=== PATIENT | female | born 1995 | race Native Hawaiian/Other Pacific Islander ===

== ENCOUNTER 2017-02-02 13:39 | Outpatient (CLI) | payer OTHER | END 2017-02-02 13:46 | disposition short-term general hospital (02) | LOC: AMB 13:39 | DX: R06.09 Other forms of dyspnea (principal) | CPT/HCPCS: A0425; A0427 ==

== ENCOUNTER 2017-02-02 13:52 | Emergency (ER) | payer OTHER ==
[~2017-02-02] VITALS: Ht 160 cm; Wt 99.8 kg
== END 2017-02-02 16:00 | disposition home or self-care (01) ==
LOC: ED 13:52
DX: J39.2 Other diseases of pharynx (principal); J02.9 Acute pharyngitis, unspecified; Z13.9 Encounter for screening, unspecified
CPT/HCPCS: 36415; 87081; 87880; 99283

== ENCOUNTER 2017-02-03 02:55 | Emergency (ER) | payer OTHER ==
[~2017-02-03] VITALS: Ht 160 cm; Wt 99.8 kg
== END 2017-02-03 03:48 | disposition home or self-care (01) ==
LOC: ED 02:55
DX: Z00.00 Encounter for general adult medical examination without abnormal findings (principal)
CPT/HCPCS: 36600; 82805; 99282

== ENCOUNTER 2017-03-09 14:25 | Emergency (ER) | payer OTHER ==
[~2017-03-09] VITALS: Ht 160 cm; Wt 99.8 kg
== END 2017-03-09 15:57 | disposition home or self-care (01) ==
LOC: ED 14:25
DX: F43.23 Adjustment disorder with mixed anxiety and depressed mood (principal)
CPT/HCPCS: 36415; 36600; 82805; 99282

== ENCOUNTER 2022-08-28 20:06 | Emergency (ER) | payer OTHER ==
[~2022-08-28] VITALS: Ht 165.1 cm; Wt 99.8 kg
[2022-08-28 20:15] VITALS: BP 115/64; TEMP 98.7
== END 2022-08-28 20:40 | disposition home or self-care (01) ==
LOC: ED 20:06
DX: M94.0 Chondrocostal junction syndrome [Tietze] (principal); R07.89 Other chest pain; F79 Unspecified intellectual disabilities
CPT/HCPCS: 99282